=== PATIENT | female | born 1980 | race Caucasian/White ===

== ENCOUNTER 2022-10-13 17:44 | Emergency (ER) | payer OTHER ==
[2022-10-13] MEDS ORDERED: HYDROcodone/Acetaminophen 5/325 mg Tablet ONE (20:06)
== END 2022-10-13 20:35 | disposition home or self-care (01) ==
LOC: BURERS 17:44
DX: S00.03XA Contusion of scalp, initial encounter (principal); E03.9 Hypothyroidism, unspecified; E78.00 Pure hypercholesterolemia, unspecified; F17.210 Nicotine dependence, cigarettes, uncomplicated; W22.8XXA Striking against or struck by other objects, initial encounter
CPT/HCPCS: 70450

== ENCOUNTER 2025-10-27 12:14 | Emergency (ER) | payer OTHER | END 2025-10-27 12:46 | disposition home or self-care (01) | LOC: BURERS 12:14 | DX: M79.671 Pain in right foot (principal); F17.210 Nicotine dependence, cigarettes, uncomplicated | CPT/HCPCS: 99283 ==